=== PATIENT | male | born 1990 | race African-American/Black ===

== ENCOUNTER 2022-08-01 09:05 | Emergency (ER) | payer OTHER, SELFPAY ==
--- NOTE | ~2022-08-01 | XR_ITS ---
EXAMINATION: XR RIBS, RIGHT CLINICAL INFORMATION: History of fall. Pain. COMPARISON: None available. TECHNIQUE: 3 views of the right ribs were obtained. The site of the pain as was pointed out by the patient was marked with a cutaneous radiopaque marker. FINDINGS: Lungs are clear. No consolidation, pneumothorax, or pleural effusion. The cardiomediastinal silhouette and pulmonary vasculature are normal. Osseous structures are unremarkable. Ribs are intact. No fractures are identified. XR/XR ribs RT min 3V w CXR1V IMPRESSION: No radiographic evidence of any displaced right lower lateral hemithoracic rib fracture or hemopneumothorax or lung contusion.
[2022-08-01 09:07] VITALS: BP 125/81; PULSE 78; RESP 18; TEMP 36.6; O2SAT 98; BMI 25.1
--- NOTE | 2022-08-01 09:24 | ED.BACK ---
HPI - Back Pain/Injury General Chief Complaint: Back Pain/Injury Stated Complaint: fall back inj at work Time Seen by Provider: 08/01/22 09:21 Source: patient Mode of arrival: wheelchair Limitations: no limitations History of Present Illness HPI Narrative: 32 yo male healthy here with right back pain after a fall which occurred at work. Patient reports he was sitting/straddling on a wooden bench. He went to stand up and lost his balance falling backwards hitting his right mid back on a wooden bench behind him. No hitting of the head or loc. Now has right sided back pain with no radiation. No nausea/vomiting, urinary symptoms, abdominal pain, weakness/numbness/tingling of lower extremities, fevers/chills,incontinence. Took Motrin prior to arrival Related Data Previous Rx's Medication Instructions Recorded cyclobenzaprine 10 mg tablet 10 mg PO TID PRN muscle spasm #10 08/01/22 tabs ibuprofen 600 mg tablet 600 mg PO Q8H PRN pain #30 tabs 08/01/22 lidocaine 5 % topical patch 1 patch topical DAILY #15 ea 08/01/22 (Lidoderm) Allergies Allergy/AdvReac Type Severity Reaction Status Date / Time No Known Allergies Allergy Verified 08/01/22 09:36 Review of Systems Review of Systems: Yes all other systems are reviewed and are negative Constitutional: Constitutional: Reports no additional constitutional complaints, Denies body ache(s), Denies chills, Denies fever(s), Denies headache(s) and Denies weakness Eyes: Eyes: Reports no additional eye complaints and Denies change in vision ENT: Reports system reviewed and no additional complaints, except as documented, Denies dizziness, Denies headache(s), Denies nasal congestion, Denies nasal discharge and Denies neck pain Cardiovascular: Cardiovascular: Reports no additional cardiovascular complaints, Denies chest pain, Denies leg edema and Denies dyspnea Respiratory: Respiratory: Reports no additional respiratory complaints, Denies cough and Denies dyspnea Gastrointestinal: Gastrointestinal: Reports no additional gastrointestinal complaints, Denies abdominal pain, Denies diarrhea, Denies nausea and Denies vomiting Genitourinary: Genitourinary: Denies urinary incontinence Musculoskeletal: Musculoskeletal: Reports no additional musculoskeletal complaints, Reports back pain, Denies arthralgias, Denies joint swelling, Denies neck pain, Denies numbness and Denies tingling Integumentary/Breasts: Skin/Breast: Reports system reviewed and no additional complaints, except as docu and Denies rash Neurologic: Reports system reviewed and no additional complaints, except as documented, Denies Abnormal speech present, Denies dizziness, Denies headache(s), Denies numbness, Denies tingling and Denies weakness PMFSH Past Medical History Attestation statement: The following information was validated with the patient. Source: old records reviewed and nursing notes reviewed Social History Social History Alcohol intake: current Alcohol intake frequency: a few times a week Smoked in Last 30 Days: Yes Use of substances other than those prescribed or required for medical reasons: No Advance Directives: No Advance Directives Information Provided: No Physical Exam Vital Signs: Vital Signs: Last Vital Signs Temp 98.7 F 08/01/22 11:19 Pulse 73 08/01/22 11:19 Resp 16 08/01/22 11:19 BP 123/83 08/01/22 11:19 Pulse Ox 97 08/01/22 11:19 O2 Del Method Room Air 08/01/22 11:19 BMI result Body Mass Index 25.1 Const: General: cooperative, healthy appearing, comfortable and no acute distress Orientation/consciousness: patient oriented x3 Limitations: no limitations HEENT: Head: Yes normal to inspection Ears: hearing grossly normal bilaterally General nose exam: Normal external nose present Face and sinus: Yes normal facial exam Mouth: Normal oral and palatal mucosa present Throat: Yes posterior oropharynx normal Eyes: General: appearance normal, both eyes and all related structures Pupils: Equal, round and reactive pupils present Neck: Neck: Yes normal visual inspection Chest: Chest palpation & inspection: normal inspection of the chest Resp: Effort & Inspection: normal respiratory effort Auscultation: clear to auscultation bilaterally Cardio: Rate: regular rate Rhythm: regular rhythm Peripheral pulses: Peripheral pulses 2+ throughout GI: Inspection: Yes normal to inspection Palpation (GI): Soft to palpation and nontender Auscultation: normal bowel sounds : General: Yes no CVA tenderness Back/Spine/Pelvis: Other: To the right posterior ribs there is an abrasion with some mild tenderness with no ecchymosis, crepitus or deformity. Back: no CVA tenderness Thoracic/Lumbar Spine: thoracic and lumbar spine normal to inspection Skin: General skin exam: no rashes or lesions noted Neuro: General: patient oriented x3, moves all extremities, no focal motor deficits and normal sensation to monofilament Cranial nerves: Yes Equal, round and reactive pupils present Cognition (Neuro): normal cognition Speech: No Abnormal speech present Gait exam (Neuro): Normal gait present Motor exam (neuro): 5/5 motor strength present throughout Sensory Exam: Normal double simultaneous stimulation for sensation Extrem: General: Yes normal to inspection, Yes no pedal edema and Yes no calf tenderness Course Course Course Narrative: X-ray shows no fracture. Likely contusion. Patient be sent home with NSAID, muscle relaxant, medicated patches with recommendation to follow-up with occupational health for any continued symptoms. Reviewed worrisome signs and symptoms of when to return to the emergency room. Comfortable plan for discharge home. Medical Decision Making Medical Decision Making MDM Narrative: 32-year-old male here with right posterior rib pain after mechanical fall which occurred while working. On exam patient was some mild abrasions in tenderness noted. There is no crepitus, ecchymosis or CVA tenderness on exam. No abdominal pain on exam. Lungs are clear. Vitals are stable. Will check rib x-ray Differential Diagnosis Differential Diagnoses: The differential diagnosis associated with the presentation includes Contusion, rib fracture Less likely intra-abdominal or intrathoracic pathology. Low concern for pneumothorax, renal laceration, splenic laceration. Low concern for spinal injury Independent Interpretation I performed an independent interpretation of an: Plain X-Ray Interpretation: I independently reviewed the x-ray and agree with radiologist's report Radiology Impression Discussion of test interpretation with radiology: I have reviewed the radiologist's reading. Radiologist Impression: [address] [address] XRay Report Signed Patient: Keshawn Hernandez MR#: [id number] : 1990 Acct:[id number] Age/Sex: 32 / M ADM Date: 08/01/22 Loc: HO.ED Attending Dr: Ordering Physician: Alley Flood NP Date of Service: 08/01/22 Procedure(s): XR ribs RT min 3V w CXR1V Accession Number(s): [id number] cc: Aleena,Alley [employer]~ EXAMINATION: XR RIBS, RIGHT CLINICAL INFORMATION: History of fall. Pain. COMPARISON: None available. TECHNIQUE: 3 views of the right ribs were obtained. The site of the pain as was pointed out by the patient was marked with a cutaneous radiopaque marker. FINDINGS: Lungs are clear. No consolidation, pneumothorax, or pleural effusion. The cardiomediastinal silhouette and pulmonary vasculature are normal. Osseous structures are unremarkable. Ribs are intact. No fractures are identified. XR/XR ribs RT min 3V w CXR1V IMPRESSION: No radiographic evidence of any displaced right lower lateral hemithoracic rib fracture or hemopneumothorax or lung contusion. ? Discharge Plan Discharge Clinical Impression: Back contusion Patient Disposition: Home, Self-Care Instructions: Contusion in Adults (ED) Additional Instructions: Your x-rays of the ribs show no fracture Apply ice or heat to the area No heavy lifting or bending Follow-up with Occupational Health for any continued symptoms. Your employer should know which occupational health they contract with Take Motrin or Tylenol for pain as needed Return for incontinence of urine, incontinence of stool, numbness in the groin, abdominal pain, fever greater than 100.4, multiple episodes of vomiting Prescriptions: New ibuprofen 600 mg tablet 600 mg PO Q8H PRN (Reason: pain) Qty: 30 0RF cyclobenzaprine 10 mg tablet 10 mg PO TID PRN (Reason: muscle spasm) Qty: 10 0RF lidocaine [Lidoderm] 5 % adhesive patch,medicated 1 patch topical DAILY Qty: 15 0RF Rx Instructions: leave on most painful area for up to 12 hrs Referrals: Physician,Unknown J [Primary Care Provider] - 1 week Stand Alone Forms: Work/School Release Interventions: ED Discharge Assessment Last Done: 08/01/22 11:22 Discharge Date/Time: 08/01/22 11:24
--- NOTE | 2022-08-01 09:47 | PC.NURSE ---
Pt on stretcher, airway open and patent, no obvious signs of distress, no difficulty/labored breathing, equal chest rise and fall. A&ox4, skin normal for ethnicity, warm, and dry. Lung sounds clr and equal bilaterally all galeas. Heart sounds normal. Bowel sounds present and active all galeas. Abdomen soft, non-tender upon palpation. No edema noted. Pt has a small abrasion and some redness on his mid right side of back. Pt complaining of pain rated 6/10 in his back.
[2022-08-01 11:19] VITALS: BP 123/83; PULSE 73; RESP 16; TEMP 37.1; O2SAT 97
== END 2022-08-01 11:24 | disposition home or self-care (01) ==
PROVIDERS: Emergency Provider Emergency Medicine
DX: S20.311A Abrasion of right front wall of thorax, initial encounter (principal); S30.0XXA Contusion of lower back and pelvis, initial encounter; W17.89XA Other fall from one level to another, initial encounter; Y93.89 Activity, other specified; Y92.138 Other place on military base as the place of occurrence of the external cause; Y99.0 Civilian activity done for income or pay
CPT/HCPCS: 71101; 99283; 99284